=== PATIENT | male | born 1975 | race Caucasian/White ===

== ENCOUNTER 2017-06-27 07:21 | Emergency (ER) | payer BC ==
[2017-06-27 07:31] VITALS: BP 144/88
--- NOTE | 2017-06-27 08:24 | ERNOTE ---
Upper Extremity HPI - Narrative Date of Service: 06/27/17 - General Extremities Pain Location: 2nd finger: right Time Seen by Provider: 06/27/17 08:12 Source: patient Exam Limitations: no limitations - Immun/Allergies/Home Medications Immunizations: IMMUNIZATION HX Immunizations Up to Date Yes History of Influenza Vaccine Yes Hx Pneumococcal Vaccination No Allergies/Adverse Reactions: Allergies Allergy/AdvReac Type Severity Reaction Status Date / Time liraglutide [From Victoza] AdvReac Severe Other Verified 06/27/17 07:34 metformin AdvReac Intermediate Diarrhea Verified 06/27/17 07:34 Home Medications: HOME MEDICATIONS Glimepiride [Amaryl] 8 mg PO DAILY@0700 01/31/14 [Last Taken Unknown] Cephalexin Monohydrate [Keflex] 250 mg PO Q6H #20 cap 06/27/17 [Last Taken Unknown] Invokana 06/27/17 [Last Taken Unknown] - History of Present Illness Narrative: Right handed male who presents to the ED for a right finger injury. This occurred yesterday at 10am while moving a wood pile. A piece of wood crushed his finger tip. He has 60% subungual hematoma here and it has been throbbing. He looked on the internet and came in today to be seen. He states the pain is throbbing. No focal weakness. States it hurts to bend his finger. No other injuries. No fever. Right handed. States dT UTD in last 5 years. Occurred: yesterday Location of Incident: home Severity: moderate Method of Injury: Reports: direct blow Modifying Factors - (Improves): Reports: other - nothing Modifying Factors - (Worsens): Reports: other - nothing Associated Symptoms: Denies: tingling, weakness Other Injuries: Reports: none Prior Treament: Denies: recently seen Review of Systems - Review of Systems Constitutional: Absent: fever Musculoskeletal: Present: See HPI Skin: Present: other - no laceration - Patient's Past Medical History Patient History - Medical: Diabetes Type 2 Patient History - Cardiac/Respiratory: No pertinent hx Patient History - Cancer: No Hx of Cancer Patient History - Surgical Procedures: Orthopedic Patient History - Other: None - Social History Psych History: No pertinent hx Smoking Status: Never smoker Have you smoked in the past 12 months: No Do you dip or chew tobacco: No Patient requests Smoking Cessation Consult: No Initiate information on Smoking Cessation: No Alcohol Use: none Drug Use: none - Immunizations Immunizations Up to Date: Yes Hx Pneumococcal Vaccination: No History of Influenza Vaccine: Yes Physical Exam - Physical Exam General Appearance: Present: alert, no apparent distress Head Exam: Present: normal inspection Eye Exam: Normal inspection: bilateral Respiratory: Present: no respiratory distress Cardiovascular/Chest: Present: normal peripheral pulses Extremity Exam: Present: other - there is a 60% subungual hematoma right 2nd digit. Nail stable and well adherent. FDS and FDP tendin appears to be intact. Full extension strength. No other tenderness. No clear tendin injury. Neurological Exam: Present: alert, no motor/sensory deficits, other - no clear acute motor or sensory deficits. Skin Exam: Present: normal color, warm/dry, other - no signs of cellultitis or infection. ED Progress - Vital Signs Patient's Vital Signs:: I have reviewed the patient's vital signs. Vital Signs: Vital Signs 06/27/17 07:28 Temperature 35.3 C L Pulse Rate 96 Respiratory 16 Rate Blood Pressure 144/88 O2 Sat by Pulse 96 Oximetry - X-Ray X-Ray #1 X-Ray: finger Interpretation: Interp. by me X-ray Comments: I reviewed official radiology report. - Progress/Reassessment Chief Complaint: Hand Injury/Pain Progress Note-Subjective: 06/27/17 08:18 Trephination completed. No complications. Given his DM will place in ABx and have 3 days f/u with splint in place. I discussed warning signs and reasons to return as well as the need for close f/u. Procedures Nail Trepanation Location: right 2nd digit Method of Drainage: 18 gauge needle Sterile Dressing Applied: Yes Finger Splint: Yes Complications: Pt suad procedure well Comments: No complications noted. Departure Clinical Impression: Subungual hematoma of digit of hand - Departure Disposition: Home self-care Condition: Stable Instructions: Subungual Hematoma, [id number] Additional Instructions: Keep clean and dry. Re-check this with your doctor in 3 days. Return for signs of infection, fever, change in drainage or if your condition worsens or changes in any way. Referrals: Thien Stubbs DO [Primary Care Provider] - Prescriptions: Cephalexin Monohydrate [Keflex] 250 mg PO Q6H #20 cap
== END 2017-06-27 08:38 | disposition home or self-care (01) ==
LOC: ER 07:21
PROC: 0H9QXZZ Drainage of Finger Nail, External Approach (ICD-10-PCS; principal; 2017-06-27)
PROC: 2W3JX1Z Immobilization of Right Finger using Splint (ICD-10-PCS; 2017-06-27)
DX: S60.121A Contusion of right index finger with damage to nail, initial encounter (principal); E11.9 Type 2 diabetes mellitus without complications; W23.1XXA Caught, crushed, jammed, or pinched between stationary objects, initial encounter; Y93.H3 Activity, building and construction; Y92.009 Unspecified place in unspecified non-institutional (private) residence as the place of occurrence of the external cause